=== PATIENT | female | born 1990 | race Hispanic/Latino ===

== ENCOUNTER 2018-08-05 08:26 | Observation (INO) | payer BC, MEDICAID ==
[~2018-08-05] VITALS: Ht 162.6 cm; Wt 93.0 kg
[~2018-08-05 08:26] MED LIST: NORE-107 PO
[2018-08-05 09:13] LABS: APPEARANCE,URINE CLEAR (CLEAR); BILIRUBIN,URINE SMALL (NEGATIVE); COLOR,URINE YELLOW (YELLOW); GLUCOSE, URINE (UA) NEGATIVE (NEGATIVE); KETONES,URINE >=80 mg/dL (NEGATIVE); LEUKOCYTE ESTERASE ,URINE NEGATIVE (NEGATIVE); NITRATE,URINE NEGATIVE (NEGATIVE); OCCULT BLOOD,URINE NEGATIVE (NEGATIVE); PROTEIN,URINE 100 mg/dL (NEGATIVE)
[2018-08-05 09:23] LABS: BACTERIA,URINE Few /HPF (None Seen); MUCUS,URINE Few LPF (None Seen); RBC,URINE 0-1 /HPF (0-1); SQUAMOUS EPITHELIAL CELL,UR Moderate /HPF (0-2)
[2018-08-05] MEDS ORDERED: PROMETHAZINE HCL 25 MG/ML 1ML AMPULE IM SCH (09:30)
[2018-08-05] MEDS: LACTATED RINGERS 1000ML IV SCH ×2 (10:00→11:00)
[2018-08-05 10:16] LABS: BASOPHILS % (AUTO) 0.2 % (0.0-5.0); EOSINOPHILS % (AUTO) 0.1 % (0.0-8.0); HEMATOCRIT 36.9 % (36-48); LYMPHOCYTES % (AUTO) 6.7 % (21.0-51.0); MEAN CORPUSCULAR HGB CONC 34.7 g/dL (32.0-36.0); MEAN CORPUSCULAR VOLUME 92.1 fL (79-99); MONOCYTES % (AUTO) 2.7 % (3.0-13.0); NEUTROPHILS % (AUTO) 90.3 % (40.0-77.0); PLATELET COUNT (AUTO) 264 K/uL (130-400); RED CELL DISTRIBUTION WIDTH 13.9 % (11.0-15.5)
== END 2018-08-05 16:20 | disposition home or self-care (01) ==
LOC: EDH 08:26 → WSH 08:44
PROVIDERS: ADMIT Specialist; ATTEND Specialist
DX: O21.2 Late vomiting of pregnancy (principal); Q90.9 Down syndrome, unspecified; Z3A.27 27 weeks gestation of pregnancy
CPT/HCPCS: 36415; 80051; 81001; 85025; 96372; 99284; G0378 ×8; J2550; J7120 ×2; 96360; 96361

== ENCOUNTER 2018-10-22 12:22 | Inpatient (IN) | payer MEDICAID | END 2018-10-25 11:11 | disposition home or self-care (01) | LOC: WSH 10-23 12:25 → LDH 12:22 ==

== ENCOUNTER → 2020-08-09 | Outpatient (CLI) | payer OTHER ==
[~2020-08-09] MED LIST changes: +DOCO200C5 PO; +GADOTERATE MEGLUMINE 10 MMOL/20 ML VIAL IV ONE
== END | disposition home or self-care (01) ==
LOC: RAH 11:02
PROVIDERS: ATTEND Internal Medicine
DX: Z13.39 Encounter for screening examination for other mental health and behavioral disorders (principal); D17.79 Benign lipomatous neoplasm of other sites; D17.1 Benign lipomatous neoplasm of skin and subcutaneous tissue of trunk; D25.9 Leiomyoma of uterus, unspecified; Z68.36 Body mass index [BMI] 36.0-36.9, adult; Z90.49 Acquired absence of other specified parts of digestive tract
CPT/HCPCS: 72197; A9575

== ENCOUNTER 2020-08-19 17:28 | Emergency (ER) | payer OTHER ==
[~2020-08-19 17:28] MED LIST changes: -GADOTERATE MEGLUMINE 10 MMOL/20 ML VIAL IV ONE
[2020-08-19 18:24] LABS: BASOPHILS % (AUTO) 0.4 % (0.0-5.0); EOSINOPHILS % (AUTO) 1.4 % (0.0-8.0); HEMATOCRIT 39.5 % (36-48); LYMPHOCYTES % (AUTO) 30.3 % (21.0-51.0); MEAN CORPUSCULAR HEMOGLOBIN 29.7 pg (27.0-33.0); MEAN CORPUSCULAR HGB CONC 33.7 g/dL (32.0-36.0); MEAN CORPUSCULAR VOLUME 88.2 fL (79-99); MONOCYTES % (AUTO) 4.9 % (3.0-13.0); NEUTROPHILS % (AUTO) 62.7 % (40.0-77.0); PLATELET COUNT (AUTO) 197 K/uL (130-400); RED BLOOD CELL COUNT(AUTO) 4.48 MIL/uL (4.00-5.50); RED CELL DISTRIBUTION WIDTH 13.2 % (11.0-15.5); WHITE BLOOD COUNT (AUTO) 11.8 K/uL (4.8-10.8)
[2020-08-19 19:05] LABS: ALBUMIN 3.6 g/dL (3.5-5.0); BILIRUBIN,TOTAL 0.2 mg/dL (0.2-1.0); CREATININE 0.7 mg/dL (0.5-1.5); POTASSIUM 3.6 mmol/L (3.5-5.1); TOTAL PROTEIN, SERUM 8.1 g/dL (6.0-8.3)
[2020-08-19 19:43] LABS: APPEARANCE,URINE BLOODY (CLEAR); BILIRUBIN,URINE Negative (NEGATIVE); COLOR,URINE Red (YELLOW); GLUCOSE, URINE (UA) Negative (NEGATIVE); KETONES,URINE Negative (NEGATIVE); LEUKOCYTE ESTERASE ,URINE Trace (NEGATIVE); NITRATE,URINE Negative (NEGATIVE); OCCULT BLOOD,URINE Large (NEGATIVE); PH,URINE 5.5 (5.0-8.0); PROTEIN,URINE POS 1+ mg/dL (NEGATIVE)
[2020-08-19 19:57] LABS: BACTERIA,URINE Few /HPF (None Seen); RBC,URINE >100 /HPF (0-1); SQUAMOUS EPITHELIAL CELL,UR None Seen /HPF (0-2)
== END 2020-08-19 20:55 | disposition home or self-care (01) ==
LOC: EDH 17:28
DX: O20.0 Threatened abortion (principal); Z3A.01 Less than 8 weeks gestation of pregnancy; Z90.49 Acquired absence of other specified parts of digestive tract
CPT/HCPCS: 36415; 76817; 80053; 81001; 83690; 84702; 85025

== ENCOUNTER 2020-08-21 11:52 | Emergency (ER) | payer OTHER ==
[2020-08-21 13:07] LABS: BASOPHILS % (AUTO) 0.3 % (0.0-5.0); EOSINOPHILS % (AUTO) 2.1 % (0.0-8.0); HEMATOCRIT 40.3 % (36-48); LYMPHOCYTES % (AUTO) 33.9 % (21.0-51.0); MEAN CORPUSCULAR HEMOGLOBIN 28.5 pg (27.0-33.0); MEAN CORPUSCULAR HGB CONC 32.8 g/dL (32.0-36.0); MONOCYTES % (AUTO) 5.2 % (3.0-13.0); NEUTROPHILS % (AUTO) 58.2 % (40.0-77.0); PLATELET COUNT (AUTO) 227 K/uL (130-400); RED BLOOD CELL COUNT(AUTO) 4.63 MIL/uL (4.00-5.50); WHITE BLOOD COUNT (AUTO) 8.7 K/uL (4.8-10.8)
[2020-08-21 13:15] LABS: APPEARANCE,URINE Clear (CLEAR); BILIRUBIN,URINE Negative (NEGATIVE); COLOR,URINE Yellow (YELLOW); GLUCOSE, URINE (UA) Negative (NEGATIVE); KETONES,URINE Negative (NEGATIVE); LEUKOCYTE ESTERASE ,URINE Trace (NEGATIVE); NITRATE,URINE Negative (NEGATIVE); OCCULT BLOOD,URINE Large (NEGATIVE); PROTEIN,URINE Negative (NEGATIVE)
[2020-08-21 13:16] LABS: CREATININE 0.7 mg/dL (0.5-1.5); POTASSIUM 4.1 mmol/L (3.5-5.1)
[2020-08-21 13:26] LABS: ALBUMIN 3.4 g/dL (3.5-5.0); BILIRUBIN,TOTAL 0.3 mg/dL (0.2-1.0); TOTAL PROTEIN, SERUM 7.9 g/dL (6.0-8.3)
[2020-08-21 13:47] LABS: BACTERIA,URINE Few /HPF (None Seen); WBC,URINE 0-1 /HPF (0-1)
== END 2020-08-21 13:50 | disposition home or self-care (01) ==
LOC: EDH 11:52
DX: O03.9 Complete or unspecified spontaneous abortion without complication (principal); Z90.49 Acquired absence of other specified parts of digestive tract; Z3A.01 Less than 8 weeks gestation of pregnancy
CPT/HCPCS: 36415; 80053; 81001; 84702; 85025

== ENCOUNTER 2020-09-27 06:30 | Day surgery (SDC) | payer OTHER ==
[2020-09-26 12:11] VITALS: BP 144/68
[~2020-09-27] VITALS: Ht 165.1 cm; Wt 101.2 kg
[2020-09-27] VITALS (18 sets, daily range): BP systolic 124–139; BP diastolic 71–90
[2020-09-27] MEDS ORDERED: LACTATED RINGERS 1000ML 1,000 ML IV ONE (07:17)
[2020-09-27] MEDS ORDERED: LIDOCAINE PF 100MG/5ML (2%) SYRINGE 5ML ONE (12:20)
[2020-09-27] MEDS ORDERED: PROPOFOL 10 MG/ML 20ML VIAL IV ONE (12:20)
[2020-09-27] MEDS ORDERED: MIDAZOLAM HCL 1 MG/ML 2ML VIAL ONE (12:20)
[2020-09-27] MEDS ORDERED: ONDANSETRON 4MG INJ ONE (12:20)
[2020-09-27] MEDS ORDERED: DEXAMETHASONE SOD PHOSPHATE 10MG/ML 1ML VIAL ONE (12:20)
[2020-09-27] MEDS ORDERED: FENTANYL CITRATE PF 50 MCG/1 ML 2ML VIAL ONE ×2 (12:21→13:28)
[2020-09-27] MEDS ORDERED: MEPERIDINE-PF 25 MG/ML SYG ONE ×2 (12:23→13:07)
[2020-09-27] MEDS ORDERED: SUCCINYLCHOLINE CHLORIDE 20 MG/ML 10 ML VIAL ONE (12:24)
[2020-09-27] MEDS ORDERED: ACET325C6 PO (12:33)
[2020-09-27] MEDS ORDERED: IBUP-2077 PO (12:33)
[2020-09-27] MEDS ORDERED: CEFAZOLIN SODIUM 1 GM VIAL ONE ×2 (12:38)
[2020-09-27] MEDS ORDERED: KETOROLAC 30MG VIAL (30MG/ML) ONE (13:29)
== END 2020-09-27 16:15 | disposition home or self-care (01) ==
LOC: DAH 06:30
PROVIDERS: ATTEND Surgery
DX: D17.1 Benign lipomatous neoplasm of skin and subcutaneous tissue of trunk (principal); Z20.822 Contact with and (suspected) exposure to COVID-19; E66.9 Obesity, unspecified; Z79.899 Other long term (current) drug therapy; Z90.49 Acquired absence of other specified parts of digestive tract; Z98.890 Other specified postprocedural states
CPT/HCPCS: 21930; 36415; 84703; 87635; A4215; A4221; A4222; A4223; A4452; A4663; A4930; C9803; J0330; J0690 ×2; J1100; J1885; J2001; J2175 ×2; J2250; J2405; J2704; J3010 ×2; J7120 ×2

== ENCOUNTER → 2020-11-11 | Outpatient (CLI) | payer OTHER ==
[~2020-11-11] MED LIST changes: +ACET325C6 PO; -DOCO200C5 PO; +IBUP-2077 PO; -NORE-107 PO
== END | disposition home or self-care (01) ==
LOC: RAH 10:08
PROVIDERS: ATTEND Otolaryngology
DX: E04.1 Nontoxic single thyroid nodule (principal)
CPT/HCPCS: 10005; 76942

== ENCOUNTER 2021-06-08 10:49 | Day surgery (SDC) | payer OTHER ==
[2021-06-02 12:36] LABS: BASOPHILS % (AUTO) 0.4 % (0.0-5.0); EOSINOPHILS % (AUTO) 1.3 % (0.0-8.0); HEMATOCRIT 41.3 % (36-48); LYMPHOCYTES % (AUTO) 31.9 % (21.0-51.0); MEAN CORPUSCULAR HEMOGLOBIN 29.2 pg (27.0-33.0); MEAN CORPUSCULAR HGB CONC 32.9 g/dL (32.0-36.0); MEAN CORPUSCULAR VOLUME 88.6 fL (79-99); MONOCYTES % (AUTO) 4.8 % (3.0-13.0); NEUTROPHILS % (AUTO) 61.4 % (40.0-77.0); PLATELET COUNT (AUTO) 281 K/uL (130-400); RED BLOOD CELL COUNT(AUTO) 4.66 MIL/uL (4.00-5.50); RED CELL DISTRIBUTION WIDTH 13.6 % (11.0-15.5); WHITE BLOOD COUNT (AUTO) 12.7 K/uL (4.8-10.8)
[2021-06-02 12:57] LABS: CREATININE 0.6 mg/dL (0.5-1.5); INR 1.03 (0.85-1.15); POTASSIUM 3.5 mmol/L (3.5-5.1); PROTHROMBIN TIME 11.2 SEC (9.6-11.6)
[2021-06-02 12:59] LABS: PARTIAL THROMBOPLASTIN TIME 29.5 SEC (26.3-35.5)
[2021-06-07 12:09] VITALS: BP 159/79
[2021-06-08] VITALS (16 sets, daily range): BP systolic 113–134; BP diastolic 64–88
[~2021-06-08] VITALS: Ht 162.6 cm; Wt 98.3 kg
[~2021-06-08 10:49] MED LIST changes: -ACET325C6 PO; +CEFAZOLIN SODIUM 1 GM VIAL IVP SCH; -IBUP-2077 PO; +LACTATED RINGERS 1000ML 1,000 ML IV SCH; +METH-387 PO
[2021-06-08] MEDS ORDERED: LACTATED RINGERS 1000ML 1,000 ML IV ONE (10:59)
[2021-06-08] MEDS ORDERED: CEFAZOLIN SODIUM 1 GM VIAL ONE (10:59)
[2021-06-08] MEDS ORDERED: BUPIVACAINE/EPI/PF 0.25% 30ML VIAL IJ ONE ×2 (12:04→14:40)
[2021-06-08] MEDS ORDERED: SUCCINYLCHOLINE 200MG/10ML SYR ONE (12:20)
[2021-06-08] MEDS ORDERED: LIDOCAINE PF 100MG/5ML (2%) SYRINGE 5ML ONE (12:20)
[2021-06-08] MEDS ORDERED: ROCURONIUM 10MG/1ML SYR 10 MG/ML ML ONE (12:20)
[2021-06-08] MEDS ORDERED: MIDAZOLAM HCL 1 MG/ML 2ML VIAL ONE (12:20)
[2021-06-08] MEDS ORDERED: ONDANSETRON 4MG INJ ONE (12:20)
[2021-06-08] MEDS ORDERED: PROPOFOL 10 MG/ML 20ML VIAL IV ONE (12:20)
[2021-06-08] MEDS ORDERED: FENTANYL CITRATE PF 50 MCG/1 ML 5ML AMP IV ONE (12:21)
[2021-06-08] MEDS ORDERED: FENTANYL CITRATE PF 50 MCG/1 ML 2ML VIAL ONE ×2 (12:21)
[2021-06-08] MEDS ORDERED: LIDOCAINE 1%-EPI 1:100,000 20 ML VIAL IJ ONE (12:28)
[2021-06-08] MEDS ORDERED: CEFAZOLIN SODIUM 2 GM VIAL IV ONE (12:55)
[2021-06-08] MEDS ORDERED: THROMBIN-JMI 20000 UNIT KIT TP ONE ×2 (13:10→14:23)
[2021-06-08] MEDS ORDERED: RACEPINEPHRINE HCL 2.25% 0.5 ML NEB SOLN ONE (15:26)
== END 2021-06-08 16:45 | disposition home or self-care (01) ==
LOC: UNDOADMOB 10:49 → DAH 10:49 → DAHIP 10:49 → DAH 16:45
PROVIDERS: ATTEND Surgery
DX: E05.10 Thyrotoxicosis with toxic single thyroid nodule without thyrotoxic crisis or storm (principal); Z79.01 Long term (current) use of anticoagulants; Z79.899 Other long term (current) drug therapy; Z20.822 Contact with and (suspected) exposure to COVID-19
CPT/HCPCS: 36415; 60220; 80048; 84703; 85025; 85610; 85730; 87635; 94640; A4215; A4221; A4222; A4223; A4649; A4663; A6260; C1713; J0330; J0690 ×2; J2001; J2250; J2405; J2704; J3010 ×3; J3490 ×3; J7120

== ENCOUNTER → 2021-09-07 | Outpatient (CLI) | payer OTHER | END | disposition home or self-care (01) | LOC: RAH 07:51 | PROVIDERS: ATTEND Internal Medicine | DX: N63.0 Unspecified lump in unspecified breast (principal); D25.9 Leiomyoma of uterus, unspecified; D25.2 Subserosal leiomyoma of uterus; N60.02 Solitary cyst of left breast | CPT/HCPCS: 76856 ==

== ENCOUNTER → 2021-10-06 | Outpatient (CLI) | payer OTHER ==
[2021-10-06 08:58] LABS: INR 0.98 (0.85-1.15); PROTHROMBIN TIME 10.7 SEC (9.6-11.6)
[2021-10-06 09:00] LABS: PARTIAL THROMBOPLASTIN TIME 28.9 SEC (26.3-35.5)
== END | disposition home or self-care (01) ==
LOC: RAH 08:08
PROVIDERS: ATTEND Internal Medicine
DX: C50.011 Malignant neoplasm of nipple and areola, right female breast (principal); Z79.01 Long term (current) use of anticoagulants
CPT/HCPCS: 19083; 85610; 85730; 87071; 87076; 87205 ×2; 36415; A4215 ×3; 19000

== ENCOUNTER 2021-10-18 12:30 | Day surgery (SDC) | payer OTHER ==
[~2021-10-18 12:30] MED LIST changes: -CEFAZOLIN SODIUM 1 GM VIAL IVP SCH; +IOHEXOL 350 MG/ML 100ML INFUS..BTL IV ONE; -LACTATED RINGERS 1000ML 1,000 ML IV SCH; -METH-387 PO
[2021-10-18] MEDS ORDERED: LEVO25CA4 PO (13:20)
[2021-10-18 13:27] VITALS: BP 151/71
[2021-10-18] MEDS ORDERED: CEFAZOLIN SODIUM 1 GM VIAL ONE (14:06)
[2021-10-18] MEDS ORDERED: LIDOCAINE HCL 400MG/20ML VIAL ONE (14:07)
[2021-10-18] MEDS ORDERED: HEPARIN 1,000 UNIT VIAL ONE (14:07)
[2021-10-18] MEDS ORDERED: LIDOCAINE 1%-EPI 1:100,000 20 ML VIAL IJ ONE (14:07)
[2021-10-18] MEDS ORDERED: MIDAZOLAM HCL 1 MG/ML 2ML VIAL ONE (14:27)
[2021-10-18] MEDS ORDERED: FENTANYL CITRATE PF 50 MCG/1 ML 2ML VIAL ONE (14:27)
[2021-10-18] MEDS ORDERED: OCTYL 2-CYANOACRYLATE 1 EACH TP ONE (14:44)
[2021-10-18 15:25] VITALS: BP 125/84
== END 2021-10-18 16:23 | disposition home or self-care (01) ==
LOC: DAH 12:30
PROVIDERS: ATTEND Internal Medicine Medical Oncology
DX: Z51.11 Encounter for antineoplastic chemotherapy (principal); C50.111 Malignant neoplasm of central portion of right female breast; Z82.49 Family history of ischemic heart disease and other diseases of the circulatory system
CPT/HCPCS: 84703; 36415; 36561; 77001; Q9967; C1894; C1788; J3010; J0690; J3490 ×2; J2250; J1644 ×2; 99156; 99157

== ENCOUNTER 2022-06-22 05:50 | Day surgery (SDC) | payer OTHER ==
[2022-06-21 13:06] LABS: BASOPHILS % (AUTO) 0.6 % (0.0-5.0); EOSINOPHILS % (AUTO) 7.7 % (0.0-8.0); HEMATOCRIT 36.1 % (36-48); LYMPHOCYTES % (AUTO) 42.6 % (21.0-51.0); MEAN CORPUSCULAR HEMOGLOBIN 31.8 pg (27.0-33.0); MEAN CORPUSCULAR HGB CONC 33.5 g/dL (32.0-36.0); MONOCYTES % (AUTO) 8.3 % (3.0-13.0); NEUTROPHILS % (AUTO) 40.6 % (40.0-77.0); PLATELET COUNT (AUTO) 188 K/uL (130-400); RED CELL DISTRIBUTION WIDTH 12.5 % (11.0-15.5); WHITE BLOOD COUNT (AUTO) 5.1 K/uL (4.8-10.8)
[2022-06-21 13:19] LABS: ALBUMIN 3.8 g/dL (3.5-5.0); CREATININE 0.7 mg/dL (0.5-1.5); POTASSIUM 3.5 mmol/L (3.5-5.1); TOTAL PROTEIN, SERUM 7.4 g/dL (6.0-8.3)
[2022-06-21 13:20] LABS: INR 1.09 (0.85-1.15); PROTHROMBIN TIME 11.8 SEC (9.6-11.6)
[2022-06-21 13:32] VITALS: BP 135/78
[~2022-06-22] VITALS: Ht 162.6 cm; Wt 90.7 kg
[~2022-06-22 05:50] MED LIST changes: -IOHEXOL 350 MG/ML 100ML INFUS..BTL IV ONE; +LEVO25CA4 PO
[2022-06-22 06:20] VITALS: BP 135/76
[2022-06-22] MEDS ORDERED: LIDOCAINE HCL 400MG/20ML VIAL ONE (08:11)
[2022-06-22] MEDS ORDERED: OCTYL 2-CYANOACRYLATE 1 EACH TP ONE (08:48)
== END 2022-06-22 09:50 | disposition home or self-care (01) ==
LOC: DAH 05:50
PROVIDERS: ATTEND Internal Medicine Hematology & Oncology
DX: Z45.2 Encounter for adjustment and management of vascular access device (principal); K76.0 Fatty (change of) liver, not elsewhere classified; Z85.3 Personal history of malignant neoplasm of breast; Z90.49 Acquired absence of other specified parts of digestive tract; Z98.890 Other specified postprocedural states; E89.0 Postprocedural hypothyroidism; Z82.61 Family history of arthritis; Z80.3 Family history of malignant neoplasm of breast; Z82.49 Family history of ischemic heart disease and other diseases of the circulatory system; Z79.01 Long term (current) use of anticoagulants
CPT/HCPCS: 80053; 85025; 85610; 36415; 36590; 77001; J3490; J1644; A4215; A4222; A4221; A4663; A4216; A4606; A4223 ×3